=== PATIENT | female | born 1980 | race Hispanic/Latino ===

== ENCOUNTER 2019-10-04 07:00 | Day surgery (SDC) | payer OTHER ==
[2019-10-01 10:57] VITALS: BP 130/84
[2019-10-01 11:05] LABS: HEMATOCRIT 40.4 % (36-48); MEAN CORPUSCULAR HEMOGLOBIN 29.9 pg (27.0-33.0); MEAN CORPUSCULAR HGB CONC 33.2 g/dL (32.0-36.0); MEAN CORPUSCULAR VOLUME 90.2 fL (79-99); PLATELET COUNT (AUTO) 280 K/uL (130-400); RED BLOOD CELL COUNT(AUTO) 4.48 MIL/uL (4.00-5.50); RED CELL DISTRIBUTION WIDTH 11.9 % (11.0-15.5); WHITE BLOOD COUNT (AUTO) 5.8 K/uL (4.8-10.8)
[2019-10-01 11:21] LABS: ALBUMIN 3.8 g/dL (3.5-5.0); BILIRUBIN,TOTAL 0.3 mg/dL (0.2-1.0); CREATININE 0.9 mg/dL (0.5-1.5); POTASSIUM 4.6 mmol/L (3.5-5.1)
[~2019-10-04] VITALS: Ht 156.2 cm; Wt 58.1 kg
[2019-10-04] VITALS (22 sets, daily range): BP systolic 105–128; BP diastolic 64–83
[~2019-10-04 07:00] MED LIST: METF-444 PO
[2019-10-04] MEDS ORDERED: SODIUM CHLORIDE 0.9% 1000ML 1,000 ML IV ONE (07:53)
[2019-10-04] MEDS ORDERED: CEFAZOLIN SODIUM 1 GM VIAL IVP ONE (08:00)
[2019-10-04] MEDS ORDERED: LIDOCAINE PF 2% 5ML ABBOJECT ONE (08:58)
[2019-10-04] MEDS ORDERED: ROCURONIUM 10MG/1ML SYR 10 MG/ML ML ONE (08:59)
[2019-10-04] MEDS ORDERED: MIDAZOLAM HCL 1 MG/ML 2ML VIAL ONE (08:59)
[2019-10-04] MEDS ORDERED: FENTANYL CITRATE PF 50 MCG/1 ML 2ML VIAL ONE (08:59)
[2019-10-04] MEDS ORDERED: PROPOFOL 10 MG/ML 20ML VIAL IV ONE (08:59)
[2019-10-04] MEDS ORDERED: SUCCINYLCHOLINE 200MG/10ML SYR ONE (09:02)
[2019-10-04] MEDS ORDERED: DEXAMETHASONE SOD PHOSPHATE 10MG/ML 1ML VIAL ONE (09:25)
[2019-10-04] MEDS ORDERED: ONDANSETRON HCL 4 MG/2 ML VIAL ONE ×2 (09:25→11:00)
[2019-10-04] MEDS ORDERED: GLYCOPYRROLATE 1 MG/5 ML SYRINGE ONE (09:26)
[2019-10-04] MEDS ORDERED: NEOSTIGMINE 5MG/5ML SYR IV ONE (09:26)
[2019-10-04] MEDS ORDERED: BUPIVACAINE/PF 0.25% 30ML VIAL IJ ONE (09:33)
[2019-10-04] MEDS ORDERED: OCTYL 2-CYANOACRYLATE 1 EACH TP ONE (09:52)
[2019-10-04] MEDS ORDERED: MEPERIDINE-PF 25 MG/ML SYG ONE (10:27)
[2019-10-04] MEDS ORDERED: KETOROLAC TROMETHAMINE 30MG/ML ONE (10:51)
[2019-10-04] MEDS ORDERED: PROMETHAZINE HCL 25 MG/ML 1ML AMPULE IM SCH (11:45)
[2019-10-04] MEDS ORDERED: MEPERIDINE-PF 50 MG/ML SYG IM SCH (12:00)
== END 2019-10-04 13:50 | disposition home or self-care (01) ==
LOC: DAH 07:00
PROVIDERS: ATTEND Obstetrics & Gynecology
DX: N92.0 Excessive and frequent menstruation with regular cycle (principal); E11.9 Type 2 diabetes mellitus without complications; Z79.84 Long term (current) use of oral hypoglycemic drugs; Z83.3 Family history of diabetes mellitus
CPT/HCPCS: 36415; 58563; 58671; 80053; 82948 ×3; 84703; 85027; 86850; 86900; 86901; A4213; A4215 ×2; A4221; A4222; A4223; A4264; A4351; A4606; A4649 ×2; A4663; A4930 ×2; A6260; C1769 ×3; G0168; J0330; J0690; J1100; J1885; J2001; J2175 ×2; J2250; J2405 ×2; J2550; J2704; J2710; J3010; J3490 ×2; J7030

== ENCOUNTER → 2025-07-17 | Outpatient (CLI) | payer OTHER ==
--- NOTE | 2025-07-17 22:48 | HMCIMG ---
STUDY: ULTRASOUND OF THE ABDOMEN, COMPLETE CLINICAL INFORMATION: Epigastric pain. TECHNIQUE: Transabdominal ultrasound of the abdomen was performed with grayscale imaging and Doppler assessment as needed. COMPARISON: None provided. FINDINGS: LIVER: Liver measures approximately 15.9 cm in craniocaudal length with homogeneous echotexture and smooth contour. No focal hepatic lesion or intrahepatic biliary ductal dilatation is identified. GALL BLADDER: Gallbladder wall measures approximately 1 mm in thickness and is within normal limits. No gallstones, sludge, or pericholecystic fluid is seen. BILIARY TREE: Common bile duct measures approximately 4 mm in diameter, within normal limits. No intrahepatic or extrahepatic biliary dilatation is demonstrated. PANCREAS: Visualized pancreas is normal in size and echotexture without focal mass or pancreatic ductal dilatation. RIGHT KIDNEY: Right kidney measures approximately 9.9 x 3.4 x 3.6 cm with preserved cortical thickness and normal echogenicity. No hydronephrosis, renal calculi, or focal renal mass is identified. LEFT KIDNEY: Left kidney measures approximately 9.2 x 3.9 x 4.3 cm with preserved cortical thickness and normal echogenicity. No hydronephrosis, renal calculi, or focal renal mass is identified. SPLEEN: Spleen measures approximately 10.5 x 5.1 x 5.0 cm, normal in size and echotexture without focal lesion. AORTA AND IVC: Abdominal aorta and inferior vena cava are normal in caliber and course without aneurysmal dilatation or intraluminal abnormality. OTHER: No significant free intraperitoneal fluid is identified. No additional upper abdominal abnormality is seen. IMPRESSION: * Unremarkable abdominal ultrasound with normal hepatobiliary, pancreatic, renal, and splenic appearances. * No sonographic evidence of cholelithiasis, biliary obstruction, or other focal upper abdominal pathology to explain epigastric pain. /[place]
== END | disposition home or self-care (01) ==
LOC: RAH 08:06
PROVIDERS: ATTEND Internal Medicine Gastroenterology
DX: R10.11 Right upper quadrant pain (principal); R10.13 Epigastric pain
CPT/HCPCS: 76700